=== PATIENT | female | born 1955 | race African-American/Black ===

== ENCOUNTER 2020-06-17 10:53 | Outpatient (CLI) | payer MEDICARE ==
--- NOTE | 2020-06-17 12:48 | RAD ---
Cervical spine 3 views: 06/17/2020 COMPARISON: None HISTORY: Cervical spine pain FINDINGS: There is facet hypertrophy at the C2-3 and C3-4 levels. There is uncovertebral osteophyte f ormation at C2-3, primarily left-sided. The open-mouth odontoid view demonstrates a normal-appearing dens and C1-2 articulation. Lateral examination demonstrates no anterolisthesis or r etrolisthesis. No prevertebral soft tissue swelling. No acute osseous abnormality. IMPRESSION: Cervical spine degenerative change as above.
--- NOTE | 2020-06-17 14:02 | RAD ---
PA AND LATERAL VIEWS CHEST: Date: 06/17/2020 HISTORY: Myalgia. FINDINGS: The heart size is normal. The aorta is tortuous. The lungs are well expanded without lobar consolidat ion, pneumothoraces, or pleural effusions. No acute osseous abnormalities are seen. IMPRESSION: No radiographic evidence of acute cardiopulmonary process. POS: [facility]
== END 2020-06-17 10:54 | disposition home or self-care (01) ==
LOC: BICRAD 10:53
PROVIDERS: ATTEND Internal Medicine Rheumatology
DX: M54.2 Cervicalgia (principal); M79.18 Myalgia, other site; M89.8X1 Other specified disorders of bone, shoulder; M47.812 Spondylosis without myelopathy or radiculopathy, cervical region
CPT/HCPCS: 71046; 72040